=== PATIENT | female | born 1950 | race Caucasian/White ===

== ENCOUNTER → 2016-12-30 | Outpatient (CLI) | payer BC, MEDICARE ==
[~2016-12-30] VITALS: Ht 152.4 cm; Wt 77.8 kg
[~2016-12-30] MED LIST: BIOT1000 PO; CHLORHEXIDINE GLUCONATE 2 % 1 PACK (2 CLOTHS) TOPICAL PRN; DEXTROSE 5% IN WATE 1000ML INJ 1,000 ML IV SCH; ESOM1CAP16 PO; INSULIN HUMAN REGULAR 1,000 UNITS/10 ML VIAL SQ PRN; LACTATED RINGER'S 1000 ML IV PRN; LEVO.05 PO; METOPROLOL TARTRATE 25 MG TAB PO PRN; MULT1TAB78 PO; OMEG1200 PO; POVIDONE IODINE 5% (ANTISEPSIS KIT) 4 APPLICATIONS EACH NARE PRN; PROPOFOL 200 MG/20 ML AMP IV ONE; SODIUM CHLORID 0.9% 500 ML IV PRN; VITA100022 PO; [UNRECOGNIZED DRUG - CODE] PO
[2016-12-30 10:00] VITALS: BP 116/75; PULSE 79; RESP 18; TEMP 98.3; O2SAT 94
--- NOTE | 2016-12-30 11:28 | PD.HP.UP ---
H&P Update Note The Pre-Admit History and Physical Examination regarding the above named patient was reviewed (including, but not limited to, vital signs, heart, lungs, co-morbid conditions), and upon re-examination it is noted that: the patient's condition has not significantly changed since the last examination. Eliu Garcia MD Dec 30, 2016 11:27
[2016-12-30 12:09] VITALS: BP 128/68; PULSE 72; RESP 16; O2SAT 97
--- NOTE | 2016-12-30 19:04 | EKG ---
Date Performed: 12/30/2016 Time Performed: 10:27:08 PTAGE: 66 years EKG: Sinus rhythm POSSIBLE ANTEROLATERAL MYOCARDIAL INFARCTION , OF INDETERMINATE AGE ABNORMAL ECG NO PREVIOUS TRACING DOCTOR: Ro Jameson Interpretating Date/Time 12/30/2016 19:04:04
--- NOTE | 2017-01-02 15:39 | MR ---
cc: DA JOSÉ M.D. DATE 12/30/16 PREOPERATIVE DIAGNOSIS History of polyps, colon cancer screening. PROCEDURE Colonoscopy to cecum. POSTOPERATIVE DIAGNOSIS 1. Normal cecum, ileocecal valve. 2. Diverticulosis rectosigmoid left colon. 3. History of polyps. SURGEON Dr. José PROCEDURE The patient was placed in the left lateral decubitus position. After adequate general anesthesia sedation rectal exam confirmed emptiness of the rectal vault. Olympus colonoscope was then introduced into rectum and advanced easily under direct vision through the proximal colon putting some pressure in the right upper quadrant to get the scope down to the cecum. The ileocecal valve was normal. There were no vascular abnormalities noted in the cecum. Colonoscope was then gradually withdrawn visualizing mucosal surface throughout the distal colon. No polyps were seen. No inflammatory changes. Diverticulosis was pretty obvious in the rectosigmoid. No active inflammation. Distal rectum was pretty unremarkable. The patient tolerated the procedure quite well and was brought to recovery room in stable condition. MD HOSSEIN Green/ANUSHA /10:23 PM /3:31 PM
== END ==
LOC: HEND 09:54
PROVIDERS: ATTEND Colon & Rectal Surgery
DX: Z12.11 Encounter for screening for malignant neoplasm of colon (principal); Z86.010 Personal history of colon polyps; K57.30 Diverticulosis of large intestine without perforation or abscess without bleeding; R94.31 Abnormal electrocardiogram [ECG] [EKG]
CPT/HCPCS: 00810; 45378; 93005; J7120